=== PATIENT | male | born 1950 | race Caucasian/White ===

== ENCOUNTER 2022-12-20 14:15 | Inpatient (IN) ==
[2022-12-20] MEDS ORDERED: NovoLIN R (or HumuLIN R) SC PRN (17:54)
[2022-12-20 18:17] LABS: BASOPHILS # (AUTO) 0.1 X10^3/uL (0.0-0.1); BASOPHILS % (AUTO) 0.8 % (0.2-1.0); EOSINOPHILS # (AUTO) 0.2 x10^3/uL (0.0-0.2); EOSINOPHILS % (AUTO) 3.6 % (0.9-2.9); HEMATOCRIT 44.1 % (42.0-54.0); HEMOGLOBIN 15.1 g/dL (13.5-18.0); LYMPHOCYTES # (AUTO) 1.4 X10^3/uL (1.3-2.9); LYMPHOCYTES % (AUTO) 21.4 % (21.0-51.0); MEAN CORPUSCULAR HEMOGLOBIN 29.3 pg (27.0-34.0); MEAN CORPUSCULAR HGB CONC 34.3 g/dL (33.0-35.0); MEAN CORPUSCULAR VOLUME 85.4 fL (80.0-100.0); MEAN PLATELET VOLUME 9.5 fL (7.4-11.0); MONOCYTES # (AUTO) 0.6 x10^3/uL (0.3-0.8); MONOCYTES % (AUTO) 9.1 % (0.0-13.0); NEUTROPHILS # (AUTO) 4.2 x10^3/uL (2.2-4.8); NEUTROPHILS % (AUTO) 65.1 % (42.0-75.0); PLATELET COUNT 194 X10^3/uL (150.0-450.0); RED BLOOD COUNT 5.17 X10^6/uL (4.7-6.0); RED CELL DISTRIBUTION WIDTH 14.3 % (11.6-16.5); WHITE BLOOD COUNT 6.5 X10^3/uL (3.6-10.0)
[2022-12-20 18:23] LABS: INR 1.22 (0.8-1.3)
[2022-12-20 18:31] LABS: ALANINE AMINOTRANSFERASE 22 Units/L (12-78); ALBUMIN 3.7 g/dL (3.4-5.0); ALKALINE PHOSPHATASE 62 Units/L (46-116); ASPARTATE AMINO TRANSFERASE 19 Units/L (15-37); BLOOD UREA NITROGEN 10 mg/dL (7-18); CALCIUM 8.6 mg/dL (8.5-10.1); CARBON DIOXIDE 31.3 mmol/L (21-32); CHLORIDE 99 mmol/L (98-107); CREATININE 0.99 mg/dL (0.70-1.30); GLUCOSE 105 mg/dL (65-99); POTASSIUM 3.7 mmol/L (3.5-5.1); SODIUM 135 mmol/L (136-145); TOTAL PROTEIN 7.3 g/dL (6.4-8.2); eGFR NON BLACK RACES > 60 (>60)
[2022-12-20] MEDS: LR 1,000 ML IV 1,000 ML IV SCH (19:14)
[2022-12-20 19:45] VITALS: BMI 32.5
[2022-12-20] MEDS ORDERED: HEPARIN SODIUM IN D5W 25,000 UNITS/500 ML BAG IV PRN (21:01)
[2022-12-20] MEDS ORDERED: HEPARIN SODIUM INJ 5000 UNITS IVP ONE (21:13)
[2022-12-20] MEDS ORDERED: NITROSTAT SL PRN (22:00)
[2022-12-20] MEDS ORDERED: LOPRESSOR TAB 25 MG PO ONE (22:05)
--- NOTE | 2022-12-20 22:36 | DR.H&P ---
H&P History & Physical for Day of: H&P Date: 12/20/22 Chief Complaint Chief Complaint: 72 yo male with history of b/l rest pain of the legs s/p arterial intervention of the right leg in 09/2022 with atherectomy and drug coated balloon angioplasty of the right tibial artery, right popliteal and right superficial femoral artery. Left leg done in 10/2022 with atherectomy and drug coated balloon angioplasty of the left tibial peroneal trunk, left superficial femoral artery and left iliac stenting. He has been aspirin and Xarelto. Post procedures c/o rest pain both legs and CTA obtained showing occlusion of the proximal superficial femoral artery and severe stenosis of the left proximal anterior tibial artery. Other 2 trifurcation vessels on the left are normal. The right leg shows severe stenosis of the right common femoral artery and patent right superficial femoral artery and 3 vessel runoff. Allergies Allergies Allergy/AdvReac Type Severity Reaction Status Date / Time Penicillins Allergy Mild NAUSEA Verified 06/20/21 08:40 codeine Allergy Verified 10/09/22 07:28 emeka Allergy Verified 09/14/22 10:37 History of Present Illness History of Present Illness: as above Past Medical History Past Medical History: Coronary Artery Disease, Depression, Diabetes, Dyslipidemia, Hypertension, ID and Sleep Apnea Past Surgical History Surgical History: Angioplasty/Stents Family History Family Medical History: Diabetes Mellitus and Hypertension Social History Does patient currently use any type of tobacco product: No Have you used tobacco products in the last 12 months: No Does any household member use tobacco: No Alcohol Use: Rarely Drug Use: None Medications Home Medications: Home Medications Medication Instructions Recorded Confirmed Type amlodipine 5 mg-benazepril 40 mg 1 cap PO DAILY 09/13/22 09/28/22 History capsule aspirin 81 mg chewable tablet 81 mg PO DAILY 09/13/22 09/28/22 History empagliflozin 25 mg tablet 25 mg PO DAILY 09/13/22 09/28/22 History (Jardiance) metoprolol tartrate 25 mg tablet 25 mg PO BID 09/13/22 09/28/22 History nitroglycerin 0.4 mg sublingual 0.4 mg sublingual DIRECTED 09/13/22 09/28/22 History tablet rosuvastatin 10 mg tablet 10 mg PO DAILY 09/13/22 09/28/22 History sitagliptin phosphate 100 mg 100 mg PO DAILY 09/13/22 09/28/22 History tablet (Januvia) tamsulosin 0.4 mg capsule 0.4 mg PO DAILY 09/13/22 09/28/22 History tizanidine 4 mg tablet 4 mg PO DAILYHS 09/13/22 09/28/22 History rivaroxaban 2.5 mg tablet (Xarelto) 2.5 mg PO BID 09/28/22 09/28/22 History Labs 12/20/22 18:01 12/20/22 18: Labs: Laboratory WBC 6.5 X10^3/uL (3.6-10.0) 12/20/22 18: RBC 5.17 X10^6/uL (4.7-6.0) 12/20/22 18: Hgb 15.1 g/dL (13.5-18.0) 12/20/22 18: Hct 44.1 % (42.0-54.0) 12/20/22 18: MCV 85.4 fL (80.0-100.0) 12/20/22 18: MCH 29.3 pg (27.0-34.0) 12/20/22 18: MCHC 34.3 g/dL (33.0-35.0) 12/20/22 18: RDW 14.3 % (11.6-16.5) 12/20/22 18: Plt Count 194 X10^3/uL (150.0-450.0) 12/20/22 18:01 MPV 9.5 fL (7.4-11.0) 12/20/22 18: Neut % (Auto) 65.1 % (42.0-75.0) 12/20/22 18:01 Lymph % (Auto) 21.4 % (21.0-51.0) 12/20/22 18: [place] % (Auto) 9.1 % (0.0-13.0) 12/20/22 18: Eos % (Auto) 3.6 % (0.9-2.9) H 12/20/22 18:01 Baso % (Auto) 0.8 % (0.2-1.0) 12/20/22 18: Neut # (Auto) 4.2 x10^3/uL (2.2-4.8) 12/20/22 18:01 Lymph # (Auto) 1.4 X10^3/uL (1.3-2.9) 12/20/22 18:01 [place] # (Auto) 0.6 x10^3/uL (0.3-0.8) 12/20/22 18:01 Eos # (Auto) 0.2 x10^3/uL (0.0-0.2) 12/20/22 18: Baso # (Auto) 0.1 X10^3/uL (0.0-0.1) 12/20/22 18:01 Absolute Nucleated RBC 0.1 /100WBC 12/20/22 18: PT 15.2 SECONDS (11.8-14.3) 12/20/22 18: INR Target Range - 12/20/22 18: INR 1.22 (0.8-1.3) 12/20/22 18:01 APTT 31.7 SECONDS (22.9-36.5) 12/20/22 18: PTT Comment - 12/20/22 18:01 Sodium 135 mmol/L (136-145) L 12/20/22 18:01 Corrected Sodium TNP 12/20/22 18:01 Potassium 3.7 mmol/L (3.5-5.1) 12/20/22 18:01 Chloride 99 mmol/L (98-107) 12/20/22 18:01 Carbon Dioxide 31.3 mmol/L (21-32) 12/20/22 18:01 BUN 10 mg/dL (7-18) 12/20/22 18:01 Creatinine 0.99 mg/dL (0.70-1.30) 12/20/22 18:01 Est GFR (MDRD) Af Amer > 60 (>60) 12/20/22 18:01 Est GFR (MDRD) Non-Af > 60 (>60) 12/20/22 18:01 Glucose 105 mg/dL (65-99) H 12/20/22 18:01 POC Glucose (mg/dL) 129 mg/dL (65-99) H 12/20/22 20:10 Calcium 8.6 mg/dL (8.5-10.1) 12/20/22 18:01 Corrected Calcium TNP 12/20/22 18:01 Total Bilirubin 0.70 mg/dL (0.2-1.0) 12/20/22 18:01 AST 19 Units/L (15-37) 12/20/22 18:01 ALT 22 Units/L (12-78) 12/20/22 18:01 Alkaline Phosphatase 62 Units/L (46-116) 12/20/22 18:01 Total Protein 7.3 g/dL (6.4-8.2) 12/20/22 18:01 Albumin 3.7 g/dL (3.4-5.0) 12/20/22 18:01 Globulin 3.6 g/dL (2.5-4.5) 12/20/22 18:01 Albumin/Globulin Ratio 1.0 Ratio (1.1-2.1) L 12/20/22 18:01 Review of Systems Constitutional: See HPI Eyes: No Symptoms Reported ENT: No Symptoms Reported Respiratory: No Symptoms Reported Cardiovascular: No Symptoms Reported Gastrointestinal: No Symptoms Reported Genitourinary: No Symptoms Reported Musculoskeletal: No Symptoms Reported Skin: No Symptoms Reported Neurological: No Symptoms Reported Physical Exam Vital Signs: Vital Signs Temperature 98.5 F Temperature 97.8 F Pulse Rate 60 Pulse Rate 59 Pulse Rate 52 Pulse Rate 54 Pulse Rate 57 Pulse Rate 57 Pulse Rate 60 Pulse Rate 56 Respiratory Rate 24 Respiratory Rate 21 Respiratory Rate 23 Respiratory Rate 20 Respiratory Rate 27 Respiratory Rate 18 Respiratory Rate 17 Respiratory Rate 17 Blood Pressure 164/74 Blood Pressure 150/70 Blood Pressure 156/70 Blood Pressure 168/77 Blood Pressure 169/77 Blood Pressure 149/80 Blood Pressure 173/79 O2 Sat by Pulse Oximetry 93 O2 Sat by Pulse Oximetry 94 O2 Sat by Pulse Oximetry 93 O2 Sat by Pulse Oximetry 94 O2 Sat by Pulse Oximetry 94 O2 Sat by Pulse Oximetry 95 O2 Sat by Pulse Oximetry 98 O2 Sat by Pulse Oximetry 99 Oriented: Normal, Time, Person and Place Eyes: Normal Ear: Normal Nose: Normal Throat: Normal Respiratory: Clear Throughout Cardiovascular: Normal and Other (both feet cool and doppler signals monophasic of left leg and right leg.) : Normal Auscultation: Bowel Sounds: Normal Palpation: Normal Tenderness: Normal Skin: Normal Musculoskeletal: Normal Psychiatric: Normal Mood Description: Calm Affect: Normal Speech Pattern: Clear Assessment/Plan (1) Atherosclerosis of [place] arteries of extremities with rest pain, left leg: Status: Acute Plan: Start heparin drip and will plan intervention of the left leg arteries in AM to include probable atherectomy of the left superficial femoral artery and possible angioplasty left anterior tibial artery (2) Atherosclerosis of [place] arteries of extremities with rest pain, right leg: Status: Acute Plan: After left leg arterial intervention will plan outpatient right leg arterial intervention in the future (3) Type 2 diabetes mellitus without complications: Status: Acute (4) Coronary artery disease with hx of myocardial infarct w/o hx of CABG: Status: Acute (5) Hyperlipidemia: Status: Acute (6) Essential (primary) hypertension: Status: Acute Review H&P Reviewed: Yes Patient was examined?: Yes
[2022-12-21] MEDS ORDERED: HEPARIN SODIUM INJ 5000 UNITS IVP ONE (04:21)
[2022-12-21] MEDS ORDERED: CONSULT PHARMACY - POTASSIUM & MAGNESIUM XX SCH (08:00)
[2022-12-21] MEDS: LR 1,000 ML IV 1,000 ML IV SCH (08:03)
[2022-12-21] MEDS ORDERED: FLOMAX PO SCH ×2 (09:00→21:00)
[2022-12-21] MEDS: LOTENSIN TAB 10 MG PO SCH (09:04)
[2022-12-21] MEDS: NORVASC TAB 5 MG PO SCH (09:04)
--- NOTE | 2022-12-21 11:17 | EKG ---
Test Reason : pre op ekg Blood Pressure : */* mmHG Vent. Rate : 51 BPM Atrial Rate : 51 BPM P-R Int : 214 ms QRS Dur : 110 ms QT Int : 460 ms P-R-T Axes : 15 -36 -2 degrees QTc Int : 423 ms Sinus bradycardia with 1st degree AV block Left axis deviation Possible Inferior infarct (cited on or before 11-SEP-2022) Cannot rule out Anterior infarct (cited on or before 11-SEP-2022) Abnormal ECG When compared with ECG of 11-SEP-2022 10:19, ME interval has increased Vent. rate has decreased BY 27 BPM Questionable change in initial forces of Lateral leads Confirmed by Bereket Rausch ([id number]) on 12/22/2022 8:34:50 PM Referred By: Confirmed By: Bereket Rausch
[2022-12-21] MEDS: ASPIRIN EC 81 MG PO SCH (15:09)
[2022-12-21] MEDS ORDERED: NS 1,000 ML IV 1,000 ML ONE (15:13)
[2022-12-21] MEDS ORDERED: NS 100 ML IV 100 ML ONE (15:13)
[2022-12-21] MEDS ORDERED: ANCEF VIAL 1 GRAM ONE (15:13)
[2022-12-21] MEDS: HYDROCHLOROTHIAZIDE 12.5 MG CAP PO SCH (15:13)
[2022-12-21] MEDS ORDERED: HEPARIN SODIUM IN D5W 75,000 UNITS/1,500 ML BAG ONE (15:20)
[2022-12-21] MEDS ORDERED: MARCAINE 0.5% ONE (15:20)
[2022-12-21] MEDS ORDERED: VERSED ONE (15:26)
[2022-12-21] MEDS ORDERED: FENTANYL VIAL INJ 100 mcg ONE (15:26)
[2022-12-21] MEDS ORDERED: TORADOL 30 MG VIAL ONE ×2 (15:27→16:05)
[2022-12-21] MEDS ORDERED: DIPRIVAN VIAL 20 ML ONE ×2 (15:27→16:33)
[2022-12-21] MEDS ORDERED: KETAMINE 50 MG/5 ML-NACL SYRNG ONE (15:28)
[2022-12-21] MEDS ORDERED: PRECEDEX INJ VIAL IVP ONE (15:30)
[2022-12-21] MEDS ORDERED: PROTAMINE SULFATE 50 MG VIAL ONE (15:31)
[2022-12-21] MEDS ORDERED: HEPARIN SODIUM INJ 5000 UNITS ONE ×2 (15:44→16:57)
[2022-12-21] MEDS ORDERED: VISIPAQUE 100 ML ONE (15:44)
[2022-12-21] MEDS ORDERED: NS 500 ML IV 500 ML IV ONE (16:14)
[2022-12-21] MEDS ORDERED: OFIRMEV IV 1000 MG VIAL 1,000 MG/100 ML VIAL IV ONE (17:00)
--- NOTE | 2022-12-21 17:30 | OR.IMMED ---
IMMEDIATE POST-OP NOTE Immediate Post-Op Note Date of surgery/procedure: 12/21/22 Pre-Op Diagnosis: Critical ischemia left leg Post-Op Diagnosis: same Procedure: diagnostic aortogram, diagnostic arteriogram left leg , atherectomy and drug coated stenting of the distal popliteal artery and tibia peroneal trunk, balloon angioplasty of superficial femoral artery stents distally and in the middle. Atherectomy and drug coated stent placement of the proximal left superficial femoral artery Description of Procedure: see dictation Surgeon/Gambreler: Quentin Findings: completely occluded left superficial femoral artery stents, reconstitution of the popliteal artery with significant stenosis of the distal tibial peroneal trunk with three vessel run off to the left foot Estimated Blood Loss: < 100 cc Complications: none Progress Notes: patient will be returned to the ICU. Begin diet. Discontinue Heparin drip. Probably discharge home tonight or in the morning on his usual medications plus aspirin and Xarelto. Follow up one week.
[2022-12-21] MEDS ORDERED: CRESTOR TAB 10 MG PO SCH (21:00)
[2022-12-21] MEDS ORDERED: ZANAFLEX PO SCH (21:00)
[2022-12-22] MEDS: NORVASC TAB 5 MG PO SCH (10:00)
[2022-12-22] MEDS: LOTENSIN TAB 10 MG PO SCH (10:00)
[2022-12-22] MEDS: HYDROCHLOROTHIAZIDE 12.5 MG CAP PO SCH (10:00)
[2022-12-22] MEDS: ASPIRIN EC 81 MG PO SCH (10:00)
--- NOTE | 2022-12-22 10:04 | W.DIS.FURT ---
Summary of Discharge Discharge Summary of Date Date of Exam: 12/22/22 Admission Date Date of Admission: 12/20/22 Admission Diagnosis Hospital Course: This 71 year old male has had bilateral lower extremity arterial interventions over the last few months , the most recently was done of the left leg in October. He continued to complain of rest pain and CT angiogram showed complete occlusion of the left superficial femoral artery .He was admitted 12/20/2022 and placed on a Heparin drip. He was taken to the operating Suite the next day, December 21 and aortogram and arteriogram showing complete occlusion of multiple stents of the left superficial femoral artery with severe disease of the left tibia peroneal trunk with 3 vessel runoff. He underwent atherectomy and drug coated stenting of the left tibial peroneal trunk and popliteal artery. He underwent atherectomy and balloon angioplasty of the previously occluded superficial femoral artery stents and placement of a more proximal superficial femoral artery stent all the way to the junction with the common femoral artery . Post procedure he has done well. He will be discharged today on his usual medications to include Xarelto 2.5 mg BID and aspirin 81 mg daily. He will follow up with me in 2 weeks. Vital Signs: Vital Signs (72 hours) 12/20/22 15:00 12/20/22 16:00 12/20/22 17:00 Temperature 97.8 F Pulse Rate 56 L 60 57 L Respiratory Rate 17 17 18 Blood Pressure 173/79 149/80 169/77 O2 Sat by Pulse Oximetry 99 98 95 Oxygen Delivery Method Room Air Room Air Room Air Oxygen Flow Rate 12/20/22 18:00 12/20/22 14:44 12/20/22 19:00 Temperature Pulse Rate 57 L Respiratory Rate 27 H Blood Pressure 168/77 O2 Sat by Pulse Oximetry 94 L Oxygen Delivery Method Room Air Room Air Room Air Oxygen Flow Rate 12/20/22 19:00 12/20/22 19:03 12/20/22 19:03 Temperature Pulse Rate 54 L 52 L Respiratory Rate 20 23 Blood Pressure 156/70 O2 Sat by Pulse Oximetry 94 L 93 L Oxygen Delivery Method Oxygen Flow Rate 12/20/22 19:00 12/20/22 20:00 12/20/22 20:00 Temperature 98.5 F Pulse Rate 59 L Respiratory Rate 21 Blood Pressure 150/70 O2 Sat by Pulse Oximetry 94 L Oxygen Delivery Method Room Air Oxygen Flow Rate 12/20/22 21:00 12/20/22 21:00 12/20/22 22:00 Temperature Pulse Rate 60 57 L Respiratory Rate 24 20 Blood Pressure 164/74 O2 Sat by Pulse Oximetry 93 L 93 L Oxygen Delivery Method Oxygen Flow Rate 12/20/22 22:01 12/20/22 22:01 12/20/22 23:01 Temperature Pulse Rate 57 L Respiratory Rate 22 Blood Pressure 149/71 125/58 O2 Sat by Pulse Oximetry 93 L Oxygen Delivery Method Oxygen Flow Rate 12/20/22 23:01 12/21/22 00:00 12/21/22 00:00 Temperature 97.9 F Pulse Rate 51 L 63 Respiratory Rate 15 23 Blood Pressure 154/63 O2 Sat by Pulse Oximetry 95 96 Oxygen Delivery Method Oxygen Flow Rate 12/21/22 01:01 12/21/22 02:00 12/21/22 02:00 Temperature Pulse Rate 54 L 48 L Respiratory Rate 16 16 Blood Pressure 128/63 133/61 O2 Sat by Pulse Oximetry 93 L 94 L Oxygen Delivery Method Oxygen Flow Rate 12/21/22 03:01 12/21/22 04:00 12/21/22 04:00 Temperature 98.5 F Pulse Rate 52 L 51 L Respiratory Rate 14 14 Blood Pressure 166/78 O2 Sat by Pulse Oximetry 97 97 Oxygen Delivery Method Oxygen Flow Rate 12/21/22 05:00 12/21/22 05:00 12/21/22 06:00 Temperature Pulse Rate 50 L 58 L Respiratory Rate 13 17 Blood Pressure 178/75 O2 Sat by Pulse Oximetry 88 L 96 Oxygen Delivery Method Oxygen Flow Rate 12/21/22 06:01 12/21/22 07:00 12/21/22 07:00 Temperature Pulse Rate 60 Respiratory Rate 13 Blood Pressure 157/76 167/79 O2 Sat by Pulse Oximetry 95 Oxygen Delivery Method Room Air Room Air Oxygen Flow Rate 12/21/22 07:00 12/21/22 07:00 12/21/22 08:00 Temperature 98.2 F Pulse Rate 54 L 51 L Respiratory Rate 17 19 Blood Pressure 167/79 147/70 O2 Sat by Pulse Oximetry 96 94 L Oxygen Delivery Method Room Air Room Air Oxygen Flow Rate 12/21/22 09:00 12/21/22 09:01 12/21/22 09:01 Temperature Pulse Rate 57 L 58 L Respiratory Rate 27 H 25 H Blood Pressure 171/79 171/79 O2 Sat by Pulse Oximetry 96 97 Oxygen Delivery Method Room Air Oxygen Flow Rate 12/21/22 10:15 12/21/22 11:01 12/21/22 12:01 Temperature Pulse Rate 64 51 L 56 L Respiratory Rate 19 17 23 Blood Pressure 181/83 172/74 181/81 O2 Sat by Pulse Oximetry 95 92 L 93 L Oxygen Delivery Method Room Air Room Air Oxygen Flow Rate 12/21/22 12:01 12/21/22 13:01 12/21/22 15:00 Temperature 98.6 F Pulse Rate 54 L 60 Respiratory Rate 23 17 Blood Pressure 158/76 O2 Sat by Pulse Oximetry 94 L 94 L Oxygen Delivery Method Room Air Oxygen Flow Rate 12/21/22 15:10 12/21/22 15:27 12/21/22 16:05 Temperature 98.1 F Pulse Rate 57 L Respiratory Rate 18 16 16 Blood Pressure 168/93 O2 Sat by Pulse Oximetry 93 L Oxygen Delivery Method Room Air Oxygen Flow Rate 12/21/22 17:34 12/21/22 17:37 12/21/22 17:37 Temperature Pulse Rate 52 L 54 L Respiratory Rate Blood Pressure 143/71 O2 Sat by Pulse Oximetry 96 95 Oxygen Delivery Method Oxygen Flow Rate 12/21/22 17:45 12/21/22 17:45 12/21/22 17:45 Temperature Pulse Rate 52 L Respiratory Rate Blood Pressure 148/76 148/76 O2 Sat by Pulse Oximetry 97 Oxygen Delivery Method Oxygen Flow Rate 12/21/22 18:00 12/21/22 18:00 12/21/22 18:00 Temperature Pulse Rate 50 L 50 L Respiratory Rate Blood Pressure 143/67 O2 Sat by Pulse Oximetry 98 98 Oxygen Delivery Method Oxygen Flow Rate 12/21/22 18:00 12/21/22 18:00 12/21/22 18:15 Temperature Pulse Rate 54 L Respiratory Rate Blood Pressure 143/67 143/67 O2 Sat by Pulse Oximetry 97 Oxygen Delivery Method Oxygen Flow Rate 12/21/22 18:15 12/21/22 18:30 12/21/22 18:30 Temperature Pulse Rate 51 L Respiratory Rate Blood Pressure 156/73 169/80 O2 Sat by Pulse Oximetry 97 Oxygen Delivery Method Oxygen Flow Rate 12/21/22 19:00 12/21/22 19:00 12/21/22 19:30 Temperature 97.7 F Pulse Rate 61 61 Respiratory Rate 19 16 Blood Pressure 164/81 159/76 O2 Sat by Pulse Oximetry 99 96 Oxygen Delivery Method Room Air Nasal Cannula Nasal Cannula Oxygen Flow Rate 2 2 12/21/22 20:00 12/21/22 20:30 12/21/22 22:56 Temperature 97.7 F 97.5 F L Pulse Rate 58 L 58 L Respiratory Rate 16 16 Blood Pressure 145/70 149/69 O2 Sat by Pulse Oximetry 96 95 Oxygen Delivery Method Nasal Cannula Nasal Cannula CPAP Oxygen Flow Rate 2 2 12/21/22 21:00 12/21/22 21:30 12/21/22 22:00 Temperature 97.7 F Pulse Rate 56 L 53 L 52 L Respiratory Rate 17 18 16 Blood Pressure 148/71 152/72 136/64 O2 Sat by Pulse Oximetry 95 94 L 94 L Oxygen Delivery Method Nasal Cannula Nasal Cannula Nasal Cannula Oxygen Flow Rate 2 2 2 12/21/22 23:00 12/22/22 00:00 12/22/22 01:00 Temperature 97.7 F Pulse Rate 50 L 48 L 54 L Respiratory Rate 16 13 13 Blood Pressure 123/60 128/62 134/66 O2 Sat by Pulse Oximetry 90 L 95 96 Oxygen Delivery Method Nasal Cannula CPAP CPAP Oxygen Flow Rate 2 12/22/22 02:00 12/22/22 03:00 12/22/22 04:00 Temperature 97.0 F L Pulse Rate 48 L 63 52 L Respiratory Rate 12 18 23 Blood Pressure 149/71 160/74 155/71 O2 Sat by Pulse Oximetry 97 98 100 Oxygen Delivery Method CPAP CPAP CPAP Oxygen Flow Rate 12/22/22 05:00 12/22/22 06:00 12/22/22 07:00 Temperature Pulse Rate 49 L 56 L Respiratory Rate 14 14 Blood Pressure 169/74 165/72 O2 Sat by Pulse Oximetry 93 L 96 Oxygen Delivery Method CPAP CPAP Room Air Oxygen Flow Rate Labs: Laboratory Last Values WBC 6.5 X10^3/uL (3.6-10.0) 12/20/22 18:01 RBC 5.17 X10^6/uL (4.7-6.0) 12/20/22 18:01 Hgb 15.1 g/dL (13.5-18.0) 12/20/22 18:01 Hct 44.1 % (42.0-54.0) 12/20/22 18:01 MCV 85.4 fL (80.0-100.0) 12/20/22 18: MCH 29.3 pg (27.0-34.0) 12/20/22 18: MCHC 34.3 g/dL (33.0-35.0) 12/20/22 18: RDW 14.3 % (11.6-16.5) 12/20/22 18: Plt Count 194 X10^3/uL (150.0-450.0) 12/20/22 18: MPV 9.5 fL (7.4-11.0) 12/20/22 18: Neut % (Auto) 65.1 % (42.0-75.0) 12/20/22 18: Lymph % (Auto) 21.4 % (21.0-51.0) 12/20/22 18: [place] % (Auto) 9.1 % (0.0-13.0) 12/20/22 18: Eos % (Auto) 3.6 % (0.9-2.9) H 12/20/22 18: Baso % (Auto) 0.8 % (0.2-1.0) 12/20/22 18: Neut # (Auto) 4.2 x10^3/uL (2.2-4.8) 12/20/22 18: Lymph # (Auto) 1.4 X10^3/uL (1.3-2.9) 12/20/22 18: [place] # (Auto) 0.6 x10^3/uL (0.3-0.8) 12/20/22 18: Eos # (Auto) 0.2 x10^3/uL (0.0-0.2) 12/20/22 18: Baso # (Auto) 0.1 X10^3/uL (0.0-0.1) 12/20/22 18: Absolute Nucleated RBC 0.1 /100WBC 12/20/22 18: PT 15.2 SECONDS (11.8-14.3) 12/20/22 18: INR Target Range - 12/20/22 18: INR 1.22 (0.8-1.3) 12/20/22 18:01 APTT 62.1 SECONDS (22.9-36.5) H 12/21/22 10:37 PTT Comment - 12/21/22 10:37 Sodium 135 mmol/L (136-145) L 12/20/22 18:01 Corrected Sodium TNP 12/20/22 18:01 Potassium 3.7 mmol/L (3.5-5.1) 12/20/22 18:01 Chloride 99 mmol/L (98-107) 12/20/22 18:01 Carbon Dioxide 31.3 mmol/L (21-32) 12/20/22 18:01 BUN 10 mg/dL (7-18) 12/20/22 18:01 Creatinine 0.99 mg/dL (0.70-1.30) 12/20/22 18:01 Est GFR (MDRD) Af Amer > 60 (>60) 12/20/22 18:01 Est GFR (MDRD) Non-Af > 60 (>60) 12/20/22 18:01 Glucose 105 mg/dL (65-99) H 12/20/22 18:01 POC Glucose (mg/dL) 96 mg/dL (65-99) 12/22/22 05:38 Calcium 8.6 mg/dL (8.5-10.1) 12/20/22 18:01 Corrected Calcium TNP 12/20/22 18:01 Magnesium 1.8 mg/dL (2.0-2.9) L 12/21/22 03:55 Total Bilirubin 0.70 mg/dL (0.2-1.0) 12/20/22 18:01 AST 19 Units/L (15-37) 12/20/22 18:01 ALT 22 Units/L (12-78) 12/20/22 18:01 Alkaline Phosphatase 62 Units/L (46-116) 12/20/22 18:01 Total Protein 7.3 g/dL (6.4-8.2) 12/20/22 18:01 Albumin 3.7 g/dL (3.4-5.0) 12/20/22 18:01 Globulin 3.6 g/dL (2.5-4.5) 12/20/22 18:01 Albumin/Globulin Ratio 1.0 Ratio (1.1-2.1) L 12/20/22 18:01 Reason For Visit: CRITICAL ISCHEMIA Discharge Date Discharge Date: 12/22/22 Discharge Diagnosis All Active Problems (Updated 12/20/22 @ 22:31 by Pankaj Saavedra) Essential (primary) hypertension (Acute) Hyperlipidemia (Acute) Coronary artery disease with hx of myocardial infarct w/o hx of CABG (Acute) Type 2 diabetes mellitus without complications (Acute) Atherosclerosis of [place] arteries of extremities with rest pain, right leg (Acute) Atherosclerosis of [place] arteries of extremities with rest pain, left leg (Acute) Attempted suicide (Acute) Plan of Treatment: Continue with present treatment and follow up plan. Pt is to keep follow up appointment as instructed and take medications as ordered. Discharge Medications Discharge Medications: Penicillins Allergy (Mild, Verified 06/20/21 08:40) NAUSEA codeine Allergy (Verified 10/09/22 07:28) emeka Allergy (Verified 09/14/22 10:37) CONTINUE taking the following medications amlodipine 5 mg-benazepril 40 mg capsule 1 cap PO QDAY 12/20/22 [History] empagliflozin 25 mg tablet (Jardiance) 25 mg PO QDAY 12/20/22 [History] hydrochlorothiazide 25 mg tablet 25 mg PO QDAY 12/20/22 [History] metoprolol tartrate 25 mg tablet 25 mg PO BID 12/20/22 [History] potassium chloride 20 mEq tablet,extended release(part/cryst) 20 meq PO QDAY 12/20/22 [History] rosuvastatin 10 mg tablet 10 mg PO QPM 12/20/22 [History] sitagliptin phosphate 100 mg tablet (Januvia) 100 mg PO QDAY 12/20/22 [History] tamsulosin 0.4 mg capsule 0.4 mg PO QDAY 12/20/22 [History] tizanidine 4 mg tablet 4 mg PO QPM 12/20/22 [History] Discharge Disposition Assessment: see hospital course Discharge Plan Discharge Plan Hospital Course: This 71 year old male has had bilateral lower extremity arterial interventions over the last few months , the most recently was done of the left leg in October. He continued to complain of rest pain and CT angiogram showed complete occlusion of the left superficial femoral artery .He was admitted 12/20/2022 and placed on a Heparin drip. He was taken to the operating Suite the next day, December 21 and aortogram and arteriogram showing complete occlusion of multiple stents of the left superficial femoral artery with severe disease of the left tibia peroneal trunk with 3 vessel runoff. He underwent atherectomy and drug coated stenting of the left tibial peroneal trunk and popliteal artery. He underwent atherectomy and balloon angioplasty of the previously occluded superficial femoral artery stents and placement of a more proximal superficial femoral artery stent all the way to the junction with the common femoral artery . Post procedure he has done well. He will be discharged today on his usual medications to include Xarelto 2.5 mg BID and aspirin 81 mg daily. He will follow up with me in 2 weeks. Patient Disposition: 01 HOME, SELF-CARE Condition: Stable Health Concerns: Post Hospitalization: new medications and changes needed to prevent readmission or further decline. Pt educated and given instructions on all concerns. Plan of Treatment: Continue with present treatment and follow up plan. Pt is to keep follow up appointment as instructed and take medications as ordered. Assessment: see hospital course Prescription drug monitoring program results: PDMP reviewed and no concerns identified Prescriptions: Continued nitroglycerin 0.4 mg tablet, sublingual 0.4 mg sublingual DIRECTED aspirin 81 mg Tablet,Chewable 81 mg PO DAILY Xarelto 2.5 mg Tablet 2.5 mg PO BID tizanidine 4 mg tablet 4 mg PO QPM potassium chloride 20 mEq tablet,ER particles/crystals 20 meq PO QDAY tamsulosin 0.4 mg capsule 0.4 mg PO QDAY hydrochlorothiazide 25 mg tablet 25 mg PO QDAY rosuvastatin 10 mg tablet 10 mg PO QPM metoprolol tartrate 25 mg tablet 25 mg PO BID amlodipine-benazepril 5-40 mg capsule 1 cap PO QDAY Januvia 100 mg tablet 100 mg PO QDAY Jardiance 25 mg tablet 25 mg PO QDAY Follow ups/Referrals Follow ups/Referrals: N[facility],None [Primary Care Provider] - 1 WEEK Pankaj Saavedra [STAFF PHYSICIAN] - 12/26/22 2:00 pm Instructions Instructions: Bleeding Precautions When on Anticoagulant Therapy, Adult, Atherosclerosis, Endovascular Therapy for Peripheral Vascular Disease, Care After, Managing Your Hypertension Stand Alone Forms: Excuse From Work or School, Post Hospital Follow Up Care
[2022-12-22] MEDS ORDERED: XARELTO PO ONE (10:05)
[2022-12-22 10:15] VITALS: BP 173/79; TEMP 98.3; O2SAT 94
[2022-12-22] MEDS ORDERED: XARELTO PO SCH (10:15)
[2022-12-22 11:17] VITALS: PULSE 73; RESP 24
--- NOTE | 2022-12-26 14:17 | DR.OPNOTE ---
OP NOTE Pre-Op Diagnosis: critical iachemia left leg Post-Op Diagnosis: same Procedure Date Date Of Procedure: 12/21/22 Procedure: PROCEDURE: DIAGNOSTIC AORTOGRAM, DIAGNOSTIC ARTERIOGRAM LEFT LEG, ATHERECTOMY AND DRUG COATED STENTING LEFT TIBIAL PERONEAL TRUNK, BALLOON ANGIOPLASTY LEFT SUPERFICIAL FEMORAL ARTERY PREVIOUSLY PLACED STENTS AND ATHERECTOMY AND DRUG COATED STENTING PROXIMAL LEFT SUPERFICIAL FEMORAL ARTERY NARRATIVE : The patient was taken to the operative suite and placed in the supine position. The right groin and entire left leg were prepped and draped in sterile fashion. The patient was given intravenous sedation supervised by myself. Time out for the procedure obtained. Ultrasound used to identify the right femoral artery and the skin overlying it infiltrated with 0.5% Marcaine. Ultrasound then used to guide puncture of the right femoral artery and a 0.012 inch guide wire was placed. Incision made over the guide wire at the skin edge with a # 11 knife blade and a micro sheath placed over the guide wire into the r ight femoral artery. The small guidewire exchanged for a 0.035 inch Advantage glide wire and the micro sheath exchanged for a 5 Fr vascular sheath. Patient given 5000 units of intravenous heparin. Omni catheter was placed over the guide wire into the aorta and diagnostic aortogram carried out with the power injector showing normal aorta and iliac arteries. Omni catheter was used to steer the guide wire down the left common iliac artery to the distal left external iliac artery . Omni catheter was exchanged for a [place] catheter and sequential arteriograms carried out of the left lower extremity showing completely occluded left superficial femoral artery stents with reconstitution of the popliteal artery with significant stenosis of the distal tibial peroneal trunk with three vessel run off to the left foot. There was also evidence of proximal stenosis of the takeoff of the left superficial femoral artery . The 5 Fr sheath in the right groin exchanged for a 7 Fr [place] sheath which was parked in distal left superficial femoral artery. [place] catheter and the guide wire were used to traverse the arteries of the left leg ultimately ending in the left peroneal artery . This was selective catheterization. 0.035 inch wire removed and exchanged for a 0.014 inch wire. Over this wire we placed the [place] atherectomy device and performed atherectomy of the distal popliteal artery and the tibial peroneal trunk.. At this point we performed drug coated stenting of the left tibial peroneal trunk with an Princess 6mmx 60 mm stent and balloon dilatation with a 5mm [place] balloon. Stents of the left superficial femoral artery were balloon dilated with a 6 mm by 200 mm [place] balloon. Atherectomy had been carried out of the proximal left superficial femoral artery and then a stent measuring 7 mm by 150 mm was positioned from the take-off of the superficial femoral artery to overlap with the proximal most stent in the artery which had already been placed. This was balloon dilated with the 6 mm balloon. At the completion of this a follow up arteriogram showed excellent result . All wires and devices removed. The 7 Fr sheath was pulled back into the aorta and a 0.035 inch wire placed. The destination sheath exchanged for an Angioseal device used to close the puncture of the left femoral artery. Dressing applied to the right groin. The patient taken to same day surgery in good condition. Type of Anesthesia: Local (0.5% Marcaine) Anesthesia Comment: plus MAC Findings: completely occluded left superficial femoral artery stents , reconstitution of the popliteal artery, significant stenosis of the distal tibial peroneal trunk with 3 vessel runoff to the left foot Type of Fluids Used:: Lactated Ringers Total Amount of Fluid Infused:: 400 cc Urine output: 500 cc EBL: 100 cc Complications:: none Needle/Sponge Count:: correct Disposition/Condition: Pt. tolerated procedure without difficulty. Extubated in the OR and taken to PACU in stable condition.
== END 2022-12-22 13:10 | disposition home or self-care (01) | DRG 272 ==
LOC: ICU 14:19
PROVIDERS: ADMIT Surgery; ATTEND Surgery
DX: I25.10 Atherosclerotic heart disease of native coronary artery without angina pectoris; I25.2 Old myocardial infarction; E11.65 Type 2 diabetes mellitus with hyperglycemia; E78.5 Hyperlipidemia, unspecified; I10 Essential (primary) hypertension; I70.222 Atherosclerosis of native arteries of extremities with rest pain, left leg